=== PATIENT | female | born 1970 | race Caucasian/White ===

== ENCOUNTER 2018-07-01 14:22 | Emergency (ER) | payer OTHER ==
[2018-07-01 14:41] VITALS: BP 130/82; PULSE 69; TEMP 98; BMI 29.5
[2018-07-01] MEDS ORDERED: KETOROLAC TROMETHAMINE 60 MG/2 ML VIAL IM ONE (16:04)
[2018-07-01] MEDS ORDERED: CYCLOBENZAPRINE HCL 10 MG TABLET (FP) PO ONE (16:04)
[2018-07-01] MEDS ORDERED: KETOROLAC TROMETHAMINE 60 MG/2 ML VIAL ONE (16:07)
[2018-07-01] MEDS ORDERED: CYCLOBENZAPRINE HCL 10 MG TABLET (FP) ONE (16:07)
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
== END 2018-07-01 16:46 | disposition home or self-care (01) ==
LOC: JERFT 14:22
PROC: 3E0233Z Introduction of Anti-inflammatory into Muscle, Percutaneous Approach (ICD-10-PCS; principal; 2018-07-01)
DX: S16.1XXA Strain of muscle, fascia and tendon at neck level, initial encounter (principal); S13.4XXA Sprain of ligaments of cervical spine, initial encounter; V49.49XA Driver injured in collision with other motor vehicles in traffic accident, initial encounter; Y92.488 Other paved roadways as the place of occurrence of the external cause; Y93.89 Activity, other specified; Y99.8 Other external cause status
CPT/HCPCS: 72050-TC-FY; 73030-TC-RT-FY; 99281-25